=== PATIENT | male | born 1975 | race Caucasian/White ===

== ENCOUNTER 2017-04-08 10:08 | Emergency (ER) | payer SELFPAY ==
--- NOTE | 2017-04-08 10:41 | EDM.PDOC ---
ED HPI GENERAL MEDICAL PROBLEM - General Chief Complaint: Chest Pain Stated Complaint: [facility] Time Seen by Provider: 04/08/17 10:15 Source of Information: Reports: Patient, EMS, EMS Notes Reviewed, RN Notes Reviewed - History of Present Illness INITIAL COMMENTS - FREE TEXT/NARRATIVE: 41-year-old male has been brought in by [facility] for evaluation of chest pain and palpitations. Patient was arrested by law enforcement yesterday. I'm not aware of the details of his arrest but he is being detained at the [facility] law enforcement Center at this time. He developed anterior chest discomfort this morning as well as some palpitations. He has been having this intermittently for the past month or 2. No radiation of pain to his shoulder or arm. He has been coughing somewhat more than usual for what sounds like several weeks or more sometimes productive of dark colored phlegm. No definite fever or chills. He does not feel short of breath at this time. The discomfort now has lessened have been started about 2 or 3 hours ago. He was given aspirin in route and also given nitroglycerin. He does not take any current prescription medications. 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 He also does smoke. He is not known to be diabetic, and also not known to have any history of hypertension or coronary artery disease. Middle Chest Pain Score (Numeric/FACES): 2 - Related Data Allergies Allergy/AdvReac Type Severity Reaction Status Date / Time No Known Allergies Allergy Verified 04/08/17 10:30 Home Meds: Home Meds . [No Known Home Meds] 04/08/17 [History] Past Medical History - Past Health History Medical/Surgical History: Denies Medical/Surgical History Social & Family History - Tobacco Use Smoking Status *Q: Current Every Day Smoker Years of Tobacco use: 30 Packs/Tins Daily: 1 - Caffeine Use Caffeine Use: Reports: Soda, Tea - Recreational Drug Use Recreational Drug Use: Yes Drug Use in Last 12 Months: Yes Recreational Drug Type: Reports: Marijuana/Hashish, Methamphetamine Recreational Drug Use Frequency: Daily Recreational Drug Last Use: 04/07/17 0600 ED ROS GENERAL - Review of Systems Review Of Systems: See Below Constitutional: Denies: Fever, Chills, Diaphoresis HEENT: Denies: Throat Pain Respiratory: Reports: Cough, Sputum. Denies: Shortness of Breath, Wheezing, Pleuritic Chest Pain Cardiovascular: Reports: Chest Pain, Palpitations GI/Abdominal: Denies: Abdominal Pain, Nausea, Vomiting Musculoskeletal: Denies: Neck Pain, Shoulder Pain, Arm Pain, Back Pain Skin: Reports: No Symptoms Neurological: Reports: No Symptoms ED EXAM, GENERAL - Physical Exam Exam: See Below General Appearance: Alert, No Apparent Distress Throat/Mouth: Normal Inspection Head: Atraumatic. No: Facial Swelling Neck: Supple, Full Range of Motion Respiratory/Chest: No Respiratory Distress, Lungs Clear, Normal Breath Sounds, Chest Non-Tender. No: Rhonchi, Wheezing Cardiovascular: Regular Rate, Rhythm GI/Abdominal: Soft, Non-Tender Extremities: No: Pedal Edema, Leg Pain Neurological: Alert, Oriented, No Motor/Sensory Deficits Skin Exam: Warm, Dry, Normal Color EKG INTERPRETATION EKG Date: 04/08/17 Rhythm: NSR [place]: Normal P-Wave: Present QRS: Normal ST-T: Other (Q waves leads 3, very mild ST elevation VTV5) Course - Vital Signs Last Recorded V/S: Last Vital Signs Temp 97.5 F 04/08/17 10:13 Pulse 81 04/08/17 10:13 Resp 18 04/08/17 10:13 BP 125/89 04/08/17 10:13 Pulse Ox 97 04/08/17 10:13 - Orders/Labs/Meds Orders: Active Orders 24 hr Category Date Time Status EKG Documentation Completion [RC] ASDIRECTED Care 04/08/17 10:19 Active Chest 1V Frontal [CR] Stat Exams 04/08/17 10:27 Taken EKG 12 Lead [EK] Stat Ther 04/08/17 10:18 Ordered Labs: Laboratory Tests 04/08/17 04/08/17 Range/Units 10:45 10:45 WBC 10.97 H (4.23-9.07) K/mm3 RBC 5.26 (4.63-6.08) M/mm3 Hgb 15.7 (13.7-17.5) gm/L Hct 45.7 (40.1-51.0) % MCV 86.9 (79.0-92.2) fl MCH 29.8 (25.7-32.2) pg MCHC 34.4 (32.2-35.5) g/dl RDW Std Deviation 44.1 H (35.1-43.9) fL Plt Count 285 (163-337) K/mm3 MPV 8.8 L (9.4-12.3) fl Neut % (Auto) 77.3 H (34.0-67.9) % Lymph % (Auto) 15.0 L (21.8-53.1) % [place] % (Auto) 5.6 (5.3-12.2) % Eos % (Auto) 1.7 (0.8-7.0) Baso % (Auto) 0.2 (0.1-1.2) % Neut # (Auto) 8.48 H (1.78-5.38) K/mm3 Lymph # (Auto) 1.65 (1.32-3.57) K/mm3 [place] # (Auto) 0.61 (0.30-0.82) K/mm3 Eos # (Auto) 0.19 (0.04-0.54) K/mm3 Baso # (Auto) 0.02 (0.01-0.08) K/mm3 Sodium 138 (136-145) mEq/L Potassium 4.0 (3.5-5.1) mEq/L Chloride 103 (98-107) mEq/L Carbon Dioxide 24 (21-32) mEq/L Anion Gap 15.0 (5-15) BUN 20 H (7-18) mg/dL Creatinine 1.1 (0.7-1.3) mg/dL Est Cr Clr Drug Dosing 100.67 mL/min Estimated GFR (MDRD) > 60 (>60) mL/min BUN/Creatinine Ratio 18.2 H (14-18) Glucose 109 H (74-106) mg/dL Calcium 8.7 (8.5-10.1) mg/dL Total Bilirubin 1.5 H (0.2-1.0) mg/dL AST 28 (15-37) U/L ALT 52 (16-63) U/L Alkaline Phosphatase 120 H (46-116) U/L Troponin I < 0.017 (0.00-0.056) ng/mL Total Protein 7.3 (6.4-8.2) g/dl Albumin 3.5 (3.4-5.0) g/dl Globulin 3.8 gm/dL Albumin/Globulin Ratio 0.9 L (1-2) Meds: Medications Discontinued Medications Generic Name Dose Route Start Last Admin Trade Name Kristen PRN Reason Stop Dose Admin Acetaminophen 975 mg 04/08/17 10:42 04/08/17 10:48 Tylenol PO 04/08/17 10:43 975 mg NOW ONE Administration Azithromycin 500 mg 04/08/17 11:41 Zithromax PO 04/08/17 11:42 ONETIME ONE - Re-Assessments/Exams Free Text/Narrative Re-Assessment/Exam: 04/08/17 11:43. Troponin, other labs have come back normal, chest x-ray was good. He is resting comfortably pain-free while here in the ED. He's been in sinus rhythm, no ectopy or other abnormality noted. He does have significant bronchitis, will give a dose of azithromycin 500 mg orally now and then have him continue a [facility] outpatient basis. Discharge instructions as documented. Departure - Departure Time of Disposition: 11:44 Disposition: Home, Self-Care 01 Condition: Fair Clinical Impression: Atypical chest pain, Bronchitis Forms: ED Department Discharge Additional Instructions: Try stop smoking, try eating a healthy cardiac diet, Zithromax antibiotic as prescribed. I do recommend follow-up with one of our clinic providers for a complete physical as soon as you are able to do that. Call [phone] for appointment. Return to ED if symptoms worsening in any way. - My Orders Last 24 Hours: My Active Orders 04/08/17 10:18 EKG 12 Lead [EK] Stat 04/08/17 10:19 EKG Documentation Completion [RC] ASDIRECTED 04/08/17 10:27 Chest 1V Frontal [CR] Stat - Assessment/Plan Last 24 Hours: My Active Orders 04/08/17 10:18 EKG 12 Lead [EK] Stat 04/08/17 10:19 EKG Documentation Completion [RC] ASDIRECTED 04/08/17 10:27 Chest 1V Frontal [CR] Stat
[2017-04-08] MEDS ORDERED: Acetaminophen 325 MG Tab PO ONE (10:42)
[2017-04-08] MEDS ORDERED: Azithromycin 250 MG Tab PO ONE (11:41)
--- NOTE | 2017-04-09 09:43 | CR ---
Portable view of the chest was obtained. Comparison: No prior chest x-ray. Heart size mildly prominent but accentuated from portable technique. Upper mediastinum is normal. Lungs are clear. Bony structures are grossly intact. Impression: 1. Nothing acute is appreciated on portable chest x-ray. Diagnostic code #1
== END 2017-04-08 12:02 | disposition home or self-care (01) ==
LOC: JD.ED 10:08
DX: J40 Bronchitis, not specified as acute or chronic (principal); R07.89 Other chest pain; F17.210 Nicotine dependence, cigarettes, uncomplicated
CPT/HCPCS: 36415; 71010; 80053; 84484; 85025; 93005; 99285; A9270

== ENCOUNTER 2017-04-09 19:02 | Emergency (ER) | payer OTHER ==
--- NOTE | 2017-04-09 19:29 | EDM.PDOC ---
ED HPI GENERAL MEDICAL PROBLEM - General Chief Complaint: Chest Pain Stated Complaint: [facility] Time Seen by Provider: 04/09/17 19:07 Source of Information: Reports: Patient, Police, RN Notes Reviewed History Limitations: Reports: No Limitations - History of Present Illness INITIAL COMMENTS - FREE TEXT/NARRATIVE: The patient is brought in from the [facility]. He was arrested the morning of 04/07/2017, for methamphetamine possession. The patient reports that he has been using methamphetamine, approximately 1 g daily, since October 2016, as well as marijuana nightly. He states that he was told to get up quickly around 18:15 this evening, and when he did so, he developed shortness of breath and possible syncope, actually falling to the ground. He states that he developed a burning sensation to the left of his upper sternum, a sensation that persists. When EMS arrived, they found him to be bradycardic and diaphoretic. The patient denies associated nausea, vomiting, constipation, or diarrhea. No sense of impending doom. He states that he has been expressing difficulty initiating a urine stream associated with methamphetamine, that is improving now that he is unable to acquire methamphetamine. Medical records indicate that the patient was seen in this ED yesterday, 2016, for a complaint of chest pain and palpitations that he reported that he had been having intermittently for the past month or two. He reported a cough occasionally productive of dark phlegm for several weeks. No fever or chills. No shortness of breath. Workup included a CBC, CMP, troponin, an ECG, and a portable chest radiograph. The patient's WBC count was mildly elevated at 10.97 , and his total bilirubin slightly elevated at 1.5, otherwise, the remainder of his workup, including his troponin, chest radiograph, and ECG were unremarkable. The patient was given a diagnosis of bronchitis, and prescribed azithromycin. Here in the ED tonight, it is noted that the patient's oxygen saturation is 100 % on room air. The patient does not have a PCP. Chest Pain Score (Numeric/FACES): 3 - Related Data Allergies Allergy/AdvReac Type Severity Reaction Status Date / Time No Known Allergies Allergy Verified 04/08/17 10:30 Home Meds: Home Meds . [No Known Home Meds] 04/08/17 [History] Past Medical History - Past Health History Medical/Surgical History: Denies Medical/Surgical History Social & Family History - Tobacco Use Smoking Status *Q: Current Every Day Smoker Years of Tobacco use: 29 Packs/Tins Daily: 1 - Caffeine Use Caffeine Use: Reports: Coffee, Tea - Alcohol Use Alcohol Use History: No - Recreational Drug Use Recreational Drug Use: Yes Drug Use in Last 12 Months: Yes Recreational Drug Type: Reports: Marijuana/Hashish (nightly), Methamphetamine ( 1 g daily) Other Recreational Drug Type: last used 3 days ago Recreational Drug Last Use: 04/07/17 0600 - Living Situation & Occupation Living situation: Reports: , with Spouse, with Family (1 son) Occupation: Employed ([employer]) ED ROS GENERAL - Review of Systems Review Of Systems: See Below Constitutional: Reports: No Symptoms HEENT: Reports: No Symptoms Respiratory: Reports: Cough (as per the HPI) Cardiovascular: Reports: Chest Pain (as per the HPI) Endocrine: Reports: No Symptoms GI/Abdominal: Reports: No Symptoms : Reports: No Symptoms Musculoskeletal: Reports: No Symptoms Skin: Reports: No Symptoms Neurological: Reports: No Symptoms Psychiatric: Reports: No Symptoms Hematologic/Lymphatic: Reports: No Symptoms Immunologic: Reports: No Symptoms ED EXAM, GENERAL - Physical Exam Exam: See Below Exam Limited By: No Limitations General Appearance: Alert, WD/WN, No Apparent Distress, Other (Hands cuffed in front of him) Eye Exam: Bilateral Eye: Normal Inspection Ears: Normal External Exam, Hearing Grossly Normal Nose: Normal Inspection, No Blood Throat/Mouth: Normal Inspection, Normal Lips, Normal Voice, No Airway Compromise Head: Atraumatic, Normocephalic Neck: Normal Inspection, Full Range of Motion Respiratory/Chest: No Respiratory Distress, Lungs Clear, Normal Breath Sounds, No Accessory Muscle Use, Other (Reproducible tenderness to palpation just to the left of the upper sternum. No change in sensation sitting up versus supine.) Cardiovascular: Normal Peripheral Pulses, Regular Rate, Rhythm, No Gallop, No JVD, No Murmur, No Rub Peripheral Pulses: 4+: Radial (L), Radial (R) GI/Abdominal: Normal Bowel Sounds, Soft, Non-Tender, No Organomegaly, No Distention, No Abnormal Bruit, No Mass (Male) Exam: Deferred Rectal (Males) Exam: Deferred Back Exam: Normal Inspection, Full Range of Motion, NT Extremities: Normal Inspection, Normal Range of Motion, No Pedal Edema, Normal Capillary Refill Neurological: Alert, Oriented, Normal Cognition, No Motor/Sensory Deficits Psychiatric: Normal Affect Skin Exam: Warm, Intact, Normal Color, No Rash, Diaphoretic (Mild) EKG INTERPRETATION EKG Date: 04/09/17 Time: 19:11 Rhythm: NSR Rate (Beats/Min): 85 [place]: RAD-Right [place] Deviation P-Wave: Present QRS: Other (LPFB) ST-T: Other (Mild diffuse J-point elevation) QT: Normal Comparison: No Change (04/08/2017) Course - Vital Signs Last Recorded V/S: Last Vital Signs Temp 36.3 C 04/09/17 19:15 Pulse 80 04/09/17 19:15 Resp 16 04/09/17 19:15 BP 130/79 04/09/17 19:15 Pulse Ox 96 04/09/17 19:15 Orthostatic Blood Pressure [ 120/81 Standing] Orthostatic Blood Pressure [ 132/88 Sitting] Orthostatic Blood Pressure [ 138/86 Supine] - Orders/Labs/Meds Orders: Active Orders 24 hr Category Date Time Status Accu Check [Blood Glucose Check, Bedside] [RC] ONETIME Care 04/09/17 19:10 Active EKG Documentation Completion [RC] STAT Care 04/09/17 19:23 Active Orthostatic Vital Signs [RC] STAT Care 04/09/17 20:20 Active Chest 2V [CR] Stat Exams 04/09/17 19:23 Taken Labs: Laboratory Tests 04/09/17 04/09/17 04/09/17 Range/Units 19:09 19:16 19:16 WBC 9.19 H (4.23-9.07) K/mm3 RBC 5.55 (4.63-6.08) M/mm3 Hgb 16.5 (13.7-17.5) gm/L Hct 47.6 (40.1-51.0) % MCV 85.8 (79.0-92.2) fl MCH 29.7 (25.7-32.2) pg MCHC 34.7 (32.2-35.5) g/dl RDW Std Deviation 43.7 (35.1-43.9) fL Plt Count 324 (163-337) K/mm3 MPV 9.1 L (9.4-12.3) fl Neutrophils % (Manual) 63 H (40-60) % Band Neutrophils % 1 (0-10) % Lymphocytes % (Manual) 24 (20-40) % Atypical Lymphs % 0 % Monocytes % (Manual) 9 (2-10) % Eosinophils % (Manual) 3 (0.8-7.0) % Basophils % (Manual) 0 L (0.2-1.2) Platelet Estimate Adequate RBC Morph Comment Normal PT 10.6 (8.0-13.0) SECONDS INR 0.97 APTT 26 (22-36) SECONDS D-Dimer, Quantitative 0.52 (0.19-0.59) mg/L Puncture Site ABG pH (7.35-7.45) ABG pCO2 (35.0-45.0) mmHg ABG pO2 (80.0-100.0) mmHg ABG HCO3 (22.0-26.0) meq/L ABG O2 Saturation (96.0-97.0) % ABG Base Excess (-2-2.0) Martin Test A-a Gradient mmHg O2 Delivery Device FiO2 (21.00-100.00) % Sodium (136-145) mEq/L Potassium (3.5-5.1) mEq/L Chloride (98-107) mEq/L Carbon Dioxide (21-32) mEq/L Anion Gap (5-15) BUN (7-18) mg/dL Creatinine (0.7-1.3) mg/dL Est Cr Clr Drug Dosing mL/min Estimated GFR (MDRD) (>60) mL/min BUN/Creatinine Ratio (14-18) Glucose (74-106) mg/dL POC Glucose 84 (70-105) mg/dL Calcium (8.5-10.1) mg/dL Total Bilirubin (0.2-1.0) mg/dL AST (15-37) U/L ALT (16-63) U/L Alkaline Phosphatase (46-116) U/L Troponin I (0.00-0.056) ng/mL NT-Pro-B Natriuret Pep (0-125) pg/mL Total Protein (6.4-8.2) g/dl Albumin (3.4-5.0) g/dl Globulin gm/dL Albumin/Globulin Ratio (1-2) 04/09/17 04/09/17 Range/Units 19:16 19:40 WBC (4.23-9.07) K/mm3 RBC (4.63-6.08) M/mm3 Hgb (13.7-17.5) gm/L Hct (40.1-51.0) % MCV (79.0-92.2) fl MCH (25.7-32.2) pg MCHC (32.2-35.5) g/dl RDW Std Deviation (35.1-43.9) fL Plt Count (163-337) K/mm3 MPV (9.4-12.3) fl Neutrophils % (Manual) (40-60) % Band Neutrophils % (0-10) % Lymphocytes % (Manual) (20-40) % Atypical Lymphs % % Monocytes % (Manual) (2-10) % Eosinophils % (Manual) (0.8-7.0) % Basophils % (Manual) (0.2-1.2) Platelet Estimate RBC Morph Comment PT (8.0-13.0) SECONDS INR APTT (22-36) SECONDS D-Dimer, Quantitative (0.19-0.59) mg/L Puncture Site Rt radial ABG pH 7.43 (7.35-7.45) ABG pCO2 38.2 (35.0-45.0) mmHg ABG pO2 67.0 L (80.0-100.0) mmHg ABG HCO3 24.8 (22.0-26.0) meq/L ABG O2 Saturation 93.7 L (96.0-97.0) % ABG Base Excess 1.1 (-2-2.0) Martin Test Positive A-a Gradient 20 mmHg O2 Delivery Device Room air FiO2 21.00 (21.00-100.00) % Sodium 140 (136-145) mEq/L Potassium 4.1 (3.5-5.1) mEq/L Chloride 105 (98-107) mEq/L Carbon Dioxide 23 (21-32) mEq/L Anion Gap 16.1 H (5-15) BUN 19 H (7-18) mg/dL Creatinine 1.1 (0.7-1.3) mg/dL Est Cr Clr Drug Dosing 95.04 mL/min Estimated GFR (MDRD) > 60 (>60) mL/min BUN/Creatinine Ratio 17.3 (14-18) Glucose 96 (74-106) mg/dL POC Glucose (70-105) mg/dL Calcium 8.9 (8.5-10.1) mg/dL Total Bilirubin 0.8 (0.2-1.0) mg/dL AST 24 (15-37) U/L ALT 43 (16-63) U/L Alkaline Phosphatase 118 H (46-116) U/L Troponin I < 0.017 (0.00-0.056) ng/mL NT-Pro-B Natriuret Pep < 5 (0-125) pg/mL Total Protein 7.6 (6.4-8.2) g/dl Albumin 3.5 (3.4-5.0) g/dl Globulin 4.1 gm/dL Albumin/Globulin Ratio 0.9 L (1-2) - Re-Assessments/Exams Free Text/Narrative Re-Assessment/Exam: 04/09/17 20:18 Two-view chest radiograph appears to be grossly normal. Cardiac silhouette is within normal limits. No pulmonary vascular congestion. No pleural effusions. No focal infiltrate. No pneumothorax. Formal read per the Radiologist pending. 04/09/17 20:28 The patient is not orthostatic. 04/09/17 20:30 Tonight's workup is unremarkable. Based on the history of being bradycardic when EMS arrived, he likely had a vagal reaction, which could also produce the diaphoresis. The left-sided chest pain appears to be musculoskeletal in etiology. Other than taking Tylenol or ibuprofen for discomfort and staying adequately hydrated, no treatment is needed. Departure - Departure Time of Disposition: 20:32 Disposition: Home, Self-Care 01 Condition: Good Clinical Impression: Vasovagal syncope, Musculoskeletal chest pain - Discharge Information Referrals: PCP,Unknown [Ordering Only Provider] - Forms: ED Department Discharge Additional Instructions: You were seen in the emergency room after passing out after getting up quickly, as well as left-sided chest pain. Workup in the ER included an Accu-Chek, blood work, an arterial blood gas, an ECG, a chest x-ray, and positional blood pressure checks. Your entire workup was unremarkable. Based on your history, you MOST LIKELY passed out due to a vasovagal reaction, where your heart rate slows down to much. Your chest pain appears to be musculoskeletal in etiology. We recommend you take [id number] Tylenol or ibuprofen as needed for discomfort. Stay well hydrated. If any other problems, please do not hesitate to return to the ER. - My Orders Last 24 Hours: My Active Orders 04/09/17 19:10 Accu Check [Blood Glucose Check, Bedside] [RC] ONETIME 04/09/17 19:23 EKG Documentation Completion [RC] STAT Chest 2V [CR] Stat 04/09/17 20:20 Orthostatic Vital Signs [RC] STAT - Assessment/Plan Last 24 Hours: My Active Orders 04/09/17 19:10 Accu Check [Blood Glucose Check, Bedside] [RC] ONETIME 04/09/17 19:23 EKG Documentation Completion [RC] STAT Chest 2V [CR] Stat 04/09/17 20:20 Orthostatic Vital Signs [RC] STAT
--- NOTE | 2017-04-11 17:12 | CR ---
Chest: Two views of the chest were obtained. Comparison: Prior chest x-ray of 04/08/17. Heart size and mediastinum are within normal limits. Lungs are clear. Minimal degenerative spurring is seen within the spine. Impression: 1. Nothing acute is seen on two-view chest x-ray. No significant change is seen from prior chest x-ray. Diagnostic code #1
== END 2017-04-09 20:45 | disposition home or self-care (01) ==
LOC: JD.ED 19:02
DX: R55 Syncope and collapse (principal); R07.89 Other chest pain; F17.210 Nicotine dependence, cigarettes, uncomplicated
CPT/HCPCS: 36415; 36600; 71020; 71020-26; 80053; 82803; 82962; 83880; 84484; 85025; 85379; 85610; 85730; 93005; 99285; 99285-25